=== PATIENT | female | born 1975 | race Caucasian/White ===

== ENCOUNTER 2016-10-26 13:53 | Inpatient (IN) | payer MEDICAID, OTHER ==
[2016-10-26] MEDS ORDERED: MAGNESIUM HYDROXIDE 2,400 MG/10 ML CUP PO PRN (17:22)
[2016-10-26] MEDS ORDERED: ZIPRASIDONE 20 MG VIAL IM PRN (17:22)
[2016-10-26] MEDS: LORazepam 1 MG TAB PO PRN (17:34)
[2016-10-26] MEDS: NICOTINE 14MG/24HR PATCH TRANSDERM SCH (17:34)
[2016-10-26 18:29] VITALS: BMI 22.3
[2016-10-27] MEDS: LORazepam 1 MG TAB PO PRN ×3 (06:43→22:48)
[2016-10-27] MEDS: NICOTINE 14MG/24HR PATCH TRANSDERM SCH (09:41)
[2016-10-27] MEDS: FLUoxetine HCL 20 MG CAP PO SCH (12:37)
[2016-10-27] MEDS: NALTREXONE HCL 50 MG TAB PO SCH (12:37)
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
[2016-10-27] MEDS: PANTOPRAZOLE 40 MG TABLET PO SCH (14:51)
[2016-10-27] MEDS: ACETAMINOPHEN TAB 325 MG TAB PO PRN ×2 (14:52→21:00)
--- NOTE | 2016-10-27 15:18 | P.CONS ---
History of Present Illness - Reason for Consult Consult date: 10/27/16 Medical management - History of Present Illness this is a 41-year-old female. She has history of bipolar disorder, tobacco use and dependence. Patient states that she has had a cough with chest pain and couldn't stop the cost that she was drinking more alcohol than usual. She apparently normally drinks a pint to a fifth 2-3 times per week. She states she has had worsening depression and has been off her bipolar medication since last summer. She states she has had some suicidal ideation but has not acted on it.she states she went to the emergency center at [facility] because of her cold symptoms and cough and she told the staff that she was suicidal and she ended up being transferred to [facility] mental health unit. Patient states she has been drinking alcohol this way for the past couple of years. She has had a seizure about 3 years ago from alcohol withdrawal. She states she did not go to a physician or clinic for her cough because she doesn't have any insurance. TSH is 3.220. Review of Systems All systems: negative Constitutional: Denies chills, Denies fever Eyes: denies blurred vision, denies pain Ears, nose, mouth and throat: Denies headache, Denies sore throat Cardiovascular: Denies chest pain, Denies shortness of breath Respiratory: Denies cough Gastrointestinal: Reports dyspepsia, Denies abdominal pain, Denies diarrhea, Denies nausea, Denies vomiting Genitourinary: Denies dysuria, Denies hematuria Musculoskeletal: Denies myalgias Integumentary: Denies pruritus, Denies rash Neurological: Denies numbness, Denies weakness Psychiatric: Reports depression, Reports hopelessness, Reports suicidal ideation , Denies anxiety Endocrine: Denies fatigue, Denies weight change Past Medical History Additional Past Medical History / Comment(s): Bronchitis, currently a right rib fx. History of Any Multi-Drug Resistant Organisms: None Reported Past Surgical History: No Surgical Hx Reported Past Anesthesia/Blood Transfusion Reactions: No Reported Reaction Past Psychological History: Anxiety, Bipolar Smoking Status: Current every day smoker Past Alcohol Use History: Abuse Additional Past Alcohol Use History / Comment(s): patient is a smoker of one pack of cigarettes per day since she was 14 years of age. She states she uses marijuana on a daily basis. She denies any other street drug use. 2-3 times per week she drinks between a pint and a fifth of alcohol and has been doing this for a couple years. Past Drug Use History: None Reported - Past Family History Father Additional Family Medical History / Comment(s): father is alive at age 65 but she does not know any of his medical history and has no contact with him. Mother Additional Family Medical History / Comment(s): Mother is alive at age 62 with history of diabetes, coronary artery disease status post 5 stents, hypertension. Sister(s) Additional Family Medical History / Comment(s): Patient has one sister age 44 with stage IV colon cancer. Patient does not have any brothers. Patient has 1 daughter and 1 son with no major medical problems. Medications and Allergies Home Medications Medication Instructions Recorded Confirmed Type No Known Home Medications [No 10/26/16 10/26/16 History Known Home Medications] Allergies Allergy/AdvReac Type Severity Reaction Status Date / Time azithromycin [From Zithromax] Allergy Anaphylaxis Verified 10/26/16 17:19 bee pollen Allergy Anaphylaxis Verified 10/26/16 17:19 latex Allergy Rash/Hives Verified 10/26/16 17:19 Penicillins Allergy Unknown Verified 10/26/16 17:19 Tetracyclines Allergy Anaphylaxis Verified 10/26/16 17:19 quetiapine [From Seroquel] AdvReac Anaphylaxis Verified 10/26/16 17:19 Physical Exam Vitals: Vital Signs Temp Pulse Pulse Resp BP BP 10/27/16 06:43 98.0 F 73 18 179/76 10/26/16 17:35 93 18 141/95 10/26/16 17:33 97.7 F 70 16 142/100 Intake and Output 10/26/16 10/27/16 10/27/16 22:59 06:59 14:59 Other: Weight 59.052 kg Gen: This is a 41-year-old female. She is cooperative and appears to be in no acute distress. HEENT: Head is atraumatic, normocephalic. Pupils equal, round. Sclerae is anicteric. NECK: Supple. No JVD. No lymphadenopathy. No thyromegaly. LUNGS: Clear to auscultation. No wheezes or rhonchi. No intercostal retractions. HEART: Regular rate and rhythm. No murmur. ABDOMEN: Soft. Bowel sounds are present. No masses. mild epigastric tenderness. EXTREMITIES: No pedal edema. No calf tenderness. NEUROLOGICAL: Patient is awake, alert and oriented x3. Cranial nerves 2 through 12 are grossly intact. Assessment and Plan Plan: 1. Depression with suicidal ideation. Patient admitted to the mental health unit. Continue current plan of care. 2. Alcohol abuse and withdrawal. Continue Ativan. Thiamine added. 3. Tobacco use and dependence. Continue nicotine patch. 4. Epigastric discomfort with possible gastritis. Protonix 40 mg daily. Lipase ordered to rule out pancreatitis. Impression and plan of care have been directed as dictated by the signing physician. Valerie Perdomo nurse practitioner acting as scribe for signing physician. Time with Patient: Greater than 30
[2016-10-28] MEDS: PANTOPRAZOLE 40 MG TABLET PO SCH (08:54)
[2016-10-28] MEDS: FLUoxetine HCL 20 MG CAP PO SCH (08:54)
[2016-10-28] MEDS: NICOTINE 14MG/24HR PATCH TRANSDERM SCH (08:54)
[2016-10-28] MEDS: NALTREXONE HCL 50 MG TAB PO SCH (08:54)
[2016-10-28] MEDS: LORazepam 1 MG TAB PO PRN ×2 (08:56→16:43)
[2016-10-28] MEDS: MAG HYDROX/AL HYDROX/SIMETH 30 ML CUP PO PRN ×2 (08:57→16:43)
[2016-10-28] MEDS ORDERED: ONDANSETRON 4 MG TAB PO PRN (09:39)
[2016-10-28] MEDS: ACETAMINOPHEN TAB 325 MG TAB PO PRN ×2 (10:11→16:42)
[2016-10-28] MEDS: cloNIDine HCL 0.1 MG TAB PO SCH ×2 (10:16→20:56)
[2016-10-28] MEDS: THIAMINE 100 MG TAB PO SCH (12:46)
--- NOTE | 2016-10-28 12:59 | P.PN ---
Progress Note - Text SUBJECTIVE: I reviewed the medical record, interviewed Ms. Ardon and discussed her treatment and treatment plan during team meeting. She inquired about her medications and asked to be started on "bipolar medications." I again attempted to clarify her medication history. She alleged that she has been prescribed many medications and "they've been changed so much" that she cannot remember their names. She stated that [facility] in [facility] dispensed some of hermedications. I called the pharmacy. According to pharmacists she received a prescription for ibuprofen 800 mg 3 times a day in February 2016. On February 24 of last year they filled prescriptions for Fetzima 40 mg daily, Latuda 20 mg today clonazepam 0.5 mg twice a day and gabapentin 800 mg 3 times a day. In February 21 they filled prescriptions for hydroxyzine 50 mg 3 times a day and trazodone 150 mg at bedtime. On February 17 the filled the prescription for fluoxetine 20 mg per day and on March 14 prescriptions for Renexa 500 mg daily and Imdur 30 mg daily. After I obtained this imformation, Miss Ardon asked me to call the "pharmacy at [facility]" because she believes that they would have a more accurate record of her outpatient prescriptions. I asked about her subjective response to Fetzima and Latuda. She thought she was "doing better" but again "cannot remember" because "the change my medications so much." She complained of weight gain with Depakote and intolerance of quetiapine. She stated she did not like Abilify. She questioned the reason for this hospitalization. I explained that she was admitted for alcohol withdrawal, depression and suicidal ideation. She denied that she was having alcohol withdrawal symptoms even though she asked me for a prescription for Zofran for nausea and she had moderate alcohol withdrawal symptoms according to CIWA. (her CIWA scores yesterday were 17 and 18 and she received a total of 4 mg of temazepam for alcohol withdrawal symptoms). OBJECTIVE: She presented as a casually groomed 41-year-old female who looked her stated age. She made eye contact and appeared to attend to the interview. She had no distinguishing features or prominent physical abnormalities she had a blunted facial expression. She was alert and oriented to person, place and time. She showed psychomotor retardation without abnormal movements. Her speech was not spontaneous and had decreased rate, rhythm and volume. Her affect was depressed and not reactive. She described suicidal ideation without plan or intent. She denied homicidal ideation. She denies depressive cognitions such as hopelessness, helplessness and worthlessness. She perseverated on past treatments for her mental illness and the reasons for the current hospitalization. She did not express ideas reference or paranoid ideation. Her thinking was concrete but her associations appeared goal coherent and organized. She denied hallucinations and did not appear to be responding to internal stimuli. She had elevated blood pressure with systolic readings of 171 and 183 today. ASSESSMENT: She is having moderate symptoms of alcohol withdrawal. She continues appear depressed and has thoughts of suicide without plan or intent. She has poor insight or understanding of her illness. She has elevated blood pressure reading most likely related to alcohol withdrawal PLAN: Continue CIWA with lorazepam 1 mg by mouth every 8 hours when necessary for alcohol withdrawal. Begin clonidine 0.1 mg twice a day for elevated blood pressure. Continue Prozac 20 mg daily and Desyrel 100 mg at bedtime when necessary for sleep. Begin Zofran 4 mg every 8 hours when necessary for nausea and vomiting. Continue Protonix 40 mg by mouth daily. I left a message with her primary care provider Barry bermudez phone in [facility] at the [facility] for clarification of her outpatient medications. Encouraged continued participation in therapeutic groups and activities. Evaluate clinical status and response to treatment on a daily basis.
[2016-10-28] MEDS: traZODone HCL 100 MG TAB PO PRN (20:58)
[2016-10-29] MEDS: cloNIDine HCL 0.1 MG TAB PO SCH (08:41)
[2016-10-29] MEDS: FLUoxetine HCL 20 MG CAP PO SCH (08:41)
[2016-10-29] MEDS: NICOTINE 14MG/24HR PATCH TRANSDERM SCH (08:41)
[2016-10-29] MEDS: NALTREXONE HCL 50 MG TAB PO SCH (08:41)
[2016-10-29] MEDS: PANTOPRAZOLE 40 MG TABLET PO SCH (08:41)
[2016-10-29] MEDS: LORazepam 1 MG TAB PO PRN ×2 (08:42→16:34)
[2016-10-29] MEDS: THIAMINE 100 MG TAB PO SCH (11:44)
--- NOTE | 2016-10-29 13:02 | P.PN ---
Progress Note - Text SUBJECTIVE: I reviewed the medical record, interviewed Ms. Ardon and discussed her treatment and treatment plan during team meeting. She reported that she is "feeling better". She slept last night and feels less depressed and hopeless. She rated her depression as a "5" and her anxiety as a "8" on a 10 point Likert scale. She attributes her anxiety to concerns about employment and her living situation. She denied having thoughts of or suicide. She is relieved that her friend Anthony has agreed to allow her to live with him temporarily in [facility]. She is denying alcohol withdrawal symptoms. OBJECTIVE: She presented as a casually groomed 41-year-old woman who looked younger than her stated age. She maintained eye contact and attended to interview. She had a blunted but bright facial expression. She was alert and oriented to person, place and time. She showed slight psychomotor retardation but no abnormal movements. His speech was spontaneous with decreased rate, rhythm and volume. She denied suicidal ideation or wishes. She denied homicidal ideation. She denied depressive cognitions such as hopelessness, helplessness and worthlessness. She did not express ideas reference or paranoid ideation. Her thinking was concrete but her associations were coherent and logical. She denied hallucinations and did not appear to be responding to internal stimuli. Her CIWA scores over the last 24 hours have ranged from 0-6. Her blood pressure this morning was 101/60. ASSESSMENT: Overall she appears moderately mentally oh and moderately improved from admission. She is denying suicidal ideation, thought or intent. She is having minimal symptoms of alcohol withdrawal ear. She is asymptomatically hypotensive. PLAN: Continue inpatient hospitalization due to hypertension and depressive symptoms. Decrease clonidine to 0.1 mg daily. Continue fluoxetine 20 mg daily and trazodone 100 mg at bedtime when necessary for sleep. Continue ReVia 50 mg daily. Encourage continued participation in therapeutic groups and activities. Evaluate clinical status and response to treatment on a daily basis.
[2016-10-29] MEDS ORDERED: LORATADINE 10 MG TAB PO PRN (15:41)
[2016-10-29] MEDS: traZODone HCL 100 MG TAB PO PRN (21:48)
[2016-10-30 06:42] VITALS: BP 115/59; PULSE 60; RESP 16; TEMP 97.8
[2016-10-30] MEDS: NALTREXONE HCL 50 MG TAB PO SCH (08:58)
[2016-10-30] MEDS: NICOTINE 14MG/24HR PATCH TRANSDERM SCH (09:00)
[2016-10-30] MEDS: PANTOPRAZOLE 40 MG TABLET PO SCH (09:00)
[2016-10-30] MEDS: LORazepam 1 MG TAB PO PRN (09:01)
[2016-10-30] MEDS: FLUoxetine HCL 20 MG CAP PO SCH (09:01)
[2016-10-30] MEDS: cloNIDine HCL 0.1 MG TAB PO SCH (09:01)
--- NOTE | 2016-10-30 12:21 | P.DS ---
Providers Date of admission: 10/26/16 16:18 Attending physician: Tommy Walker MD Consults: 10/26/16 17:22 Consult Physician Routine Consulting Provider: Orin Oswald Consult Reason/Comments: H and P Do you want consulting provider notified?: Yes Primary care physician: Stated None - Discharge Diagnosis(es) (1) Alcohol withdrawal Current Visit: Yes Status: Acute Priority: Low (2) Alcohol use disorder, severe, dependence Current Visit: Yes Status: Chronic Priority: High (3) Depressive disorder Current Visit: Yes Status: Chronic Priority: Medium (4) Suicidal ideation Current Visit: Yes Status: Resolved Priority: High Hospital Course: Ms. Ardon is a 41-year-old single female who presented to psychiatric unit voluntarily on transfer from [facility].. She presented to the ER at [facility] with symptoms of a cold associated with a cough. She developed sharp, pleuritic chest pain over the 3-4 days prior to admission. In addition she complained of depression and having thoughts of suicide. She received a comprehensive assessment in the emergency room. Her alcohol was 242. X-ray of her chest was negative. She told the social organization professor in the ER "I cannot be sent home, I do not feel safe." She complained of feeling depressed and having thoughts of suicide. She denied intent or plan. She attributes her suicidal thoughts to a recent breakup with her boyfriend and lack stable housing since breakup with boyfriend. She reported decreased sleep where she is only sleeping 3-4 hours per night, decreased appetite, crying spells and increased alcohol use. She has been drinking on a daily basis over the last several months consuming one fifth of liquor every 2-3 days. She smokes marijuana "intermittently" but denied use of other drugs such as cocaine, crack cocaine, methamphetamine, heroin, or opioid medications, sedative hypnotics etc. She moved in with her boyfriend after she left residential rehabilitation at [facility] in December 2015. She stated that she broke up with boyfriend because his alcohol use had increased and they were arguing more frequently. Since she left her boyfriend's, she has been living between her mother's apartment and a friend. She stated that she cannot live with her mother because her mother lives in a low income apartment and is not allowed to have long-term guests. She cannot live permanently with her girlfriend. She also complaining about the lack of social support that she has had since she moved from [facility]. She denied homicidal ideation. She denied psychotic symptoms such as auditory or visual hallucinations, ideas reference, thought insertion, thought broadcasting or thought control. She described mild symptoms of alcohol withdrawal including nausea, light sensitivity and headache. We discussed treatment options and she is not interested currently in a residential substance abuse treatment program. She stated that she needs to return to work and has arranged a transfer to a [employer] in [facility]. She stated she is interested in outpatient substance abuse treatment and wishes to continue with outpatient mental health treatment. She stated she first used alcohol when she was 15 years old. In retrospect, she believes that her alcohol use became "heavy" when she was in her 20s. 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 She denied health or employment problems as a result of alcohol use. She described a pattern of alcohol use where she is able to maintain her sobriety for "3-4 months" and then would relapse to alcohol use. She was in [facility] for "21 days" and was sober for 4 months after completing the program. She has attended Alcoholics Anonymous. She has a home group and a sponsor. However, she was involved with Alcoholics Anonymous was she was living in [facility] and not since she moved to [facility]. She smokes marijuana but was vague about the amount and frequency. She denied use of other drugs. We admitted her to the psychiatric unit under care of this senior writer. We provided a biopsychosocial assessment. The behavioral consultant director of curriculum and instruction provided the initial medical history and physical exam. The director of curriculum and instruction diagnosis alcohol abuse and withdrawal, tobacco use and dependence and epigastric discomfort with possible gastritis; recommended treatment including thiamine, nicotine patch and Protonix. Her lipase was 131. We placed her on suicide precautions with 15 minute checks. We addressed her complaints of depression and insomnia with fluoxetine 20 mg daily and trazodone 100 mg at bedtime when necessary. We manage her alcohol withdrawal symptoms with CIWA protocol and lorazepam 1 mg every 8 hours when necessary as needed. She had moderate symptoms of alcohol withdrawal uncomplicated by psychotic symptoms, seizures or delirium. She participated in therapeutic groups and activities. As her alcohol withdrawal symptoms abated her mood improved. She talked about her move to [facility] as one of the contributors to her depression and relapse to alcohol. After she left her boyfriend she lived between her mother's apartment and a girlfriend. Neither living situation was optimal particular the girlfriend who had a substance use disorder. She talked about having supports and greater involvement with Alcoholics Anonymous while she was living in [facility]. She contacted a friend who agreed to provide her temporary residence in [facility] until she is able to afford her own apartment. She has arranged to transfer to a [facility] in [facility]. At the time of discharge she denied thoughts of or suicide. She denied alcohol withdrawal symptoms. She feels hopeful about her future. She expresses interest in continued outpatient mental health treatment in the social organization professor's arrange an appointment with [facility]. Patient Condition at Discharge: Good Plan - Discharge Summary New Discharge Prescriptions: FLUoxetine HCL [PROzac] 20 mg PO DAILY 30 Days Naltrexone HCl [Revia] 50 mg PO DAILY 30 Days Nicotine 14Mg/24Hr Patch [Habitrol] 1 patch TRANSDERM DAILY 14 Days Pantoprazole [Protonix] 40 mg PO AC-BRKFST 30 Days traZODone HCL [Desyrel] 100 mg PO HS PRN 30 Days PRN Reason: Insomnia Discharge Medication List FLUoxetine HCL [PROzac] 20 mg PO DAILY 30 Days 10/30/16 [Rx] Naltrexone HCl [Revia] 50 mg PO DAILY 30 Days 10/30/16 [Rx] Nicotine 14Mg/24Hr Patch [Habitrol] 1 patch TRANSDERM DAILY 14 Days 10/30/16 [Rx ] Pantoprazole [Protonix] 40 mg PO AC-BRKFST 30 Days 10/30/16 [Rx] traZODone HCL [Desyrel] 100 mg PO HS PRN 30 Days 10/30/16 [Rx] Follow up Appointment(s)/Referral(s): intake,intake [Other] - 1 Week Discharge Disposition: HOME SELF-CARE
[2016-10-30] MEDS: THIAMINE 100 MG TAB PO SCH (12:30)
== END 2016-10-30 15:23 | disposition home or self-care (01) | DRG 881 ==
LOC: 3MHU 16:18
PROVIDERS: ADMIT Psychiatry & Neurology Psychiatry; ATTEND Psychiatry & Neurology Psychiatry
PROC: HZ2ZZZZ Detoxification Services for Substance Abuse Treatment (ICD-10-PCS; principal; 2016-10-26)
DX: F32.9 Major depressive disorder, single episode, unspecified (principal); R45.851 Suicidal ideations; F10.239 Alcohol dependence with withdrawal, unspecified; F41.9 Anxiety disorder, unspecified; G47.00 Insomnia, unspecified; F12.90 Cannabis use, unspecified, uncomplicated; R03.0 Elevated blood-pressure reading, without diagnosis of hypertension; F17.210 Nicotine dependence, cigarettes, uncomplicated; R05 Cough; K29.70 Gastritis, unspecified, without bleeding; Z88.0 Allergy status to penicillin; Z88.8 Allergy status to other drugs, medicaments and biological substances; Z87.81 Personal history of (healed) traumatic fracture; Z86.19 Personal history of other infectious and parasitic diseases; Z87.09 Personal history of other diseases of the respiratory system; Z59.0 Homelessness; Z82.49 Family history of ischemic heart disease and other diseases of the circulatory system; Z83.3 Family history of diabetes mellitus; Z80.0 Family history of malignant neoplasm of digestive organs; Z88.1 Allergy status to other antibiotic agents; Z91.030 Bee allergy status; Z91.040 Latex allergy status; Z71.41 Alcohol abuse counseling and surveillance of alcoholic; Z86.69 Personal history of other diseases of the nervous system and sense organs; Z62.810 Personal history of physical and sexual abuse in childhood; Z63.0 Problems in relationship with spouse or partner; Z81.1 Family history of alcohol abuse and dependence; Z81.8 Family history of other mental and behavioral disorders
CPT/HCPCS: 83690; 84443